=== PATIENT | female | born 1980 | race Caucasian/White ===

== ENCOUNTER 2019-02-09 06:26 | Day surgery (SDC) | payer OTHER ==
[2019-02-09 06:47] LABS: Specific Gravity 1.025 (1.005-1.030)
[2019-02-09] MEDS ORDERED: Ringers Lactate 1,000 ML IV ONE (06:56)
[2019-02-09] MEDS ORDERED: FENTANYL CITR 100 MCG/2 ML ONE (07:17)
[2019-02-09] MEDS ORDERED: PROPOFOL 200 MG/20 ML VIAL IV ONE (07:17)
[2019-02-09] MEDS ORDERED: LIDOCAINE 2% MPF 5 ML VIAL ONE (07:18)
[2019-02-09] MEDS ORDERED: DEXAMETHASONE 10 MG/ML VIAL ONE (07:18)
[2019-02-09] MEDS ORDERED: MIDAZOLAM HCL 2 MG/2 ML INJ ONE (07:18)
[2019-02-09] MEDS ORDERED: NA CHLORIDE 0.9% 1,000 ML ONE (07:20)
[2019-02-09] MEDS ORDERED: LIDOCAINE 1% W/EPI 1:100,000 MDV 50 ML VIAL ONE (07:20)
[2019-02-09] MEDS ORDERED: SILVER NITRATE 1 APPL TOP ONE (08:20)
[2019-02-09] MEDS ORDERED: KETOROLAC 30 MG/ML INJ ONE (08:31)
[2019-02-09] MEDS: MORPHINE 4 MG/ML SYR ONE ×4 (08:39→08:54)
[2019-02-09] MEDS ORDERED: ONDANSETRON HCL 40 MG/20 ML VIAL ONE (08:52)
--- NOTE | 2019-02-09 18:44 | OP ---
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 Postoperative Diagnoses: Menorrhagia, endometrial polyp. Procedures Performed: Hysteroscopy, polypectomy, and dilation and curettage with a Symphion device. Anesthesia: General with LMA. Specimens: Polyp and endometrial curettings. Complications: None. Drains: None. Condition: Stable. Findings: Uterine cavity, sounded with a SlimLine scope, 7 cm sounding length, 4.5 cm cervical lengt h. Uterine cavity length calculated at the level of the fundus, 3.5 cm. Both tubal ostia well visua lized. No indentation that could be visible seen during the hysteroscopy. After the polyp was remov ed, the entire cavity appeared to be single. Both tubal ostia were well visualized. Polyp and curet tings were done to an optimal extent and sent over for permanent pathology. Procedure In Detail: After informed consent was verified, the patient was taken back to the OR, plac ed in a supine fashion on the operating table, general anesthesia given. Placed in a dorsal lithotom y position. Pelvic exam, anteflexed uterus. Cervix, vagina, and vulva prepped with Betadine x3. An terior lip grasped with 2 Allis clamps. The Symphion device was primed, normal saline used for diste ntion, 0 degree scope. The cervical canal was difficult to be traversed without dilation, so the sco pe removed, dilation to 14-Sinhala. Then scope placed. Set pressure at 90 mmHg increased from 80 as the cavity distention was not optimal. Once the cavity was entered, there was a polyp and an endomet rium that was very thick, difficult for a good cavity distention at this point or cavity visualizatio n due to the presence of the tissue and the polyp, so the resection device was placed. The polyp and the curettings were performed with good visualization. Once this was done, the scope was changed to a SlimLine scope, set the pressure at 100 and visualized, and the cavity was single. No distortion. No other intracavitary lesions. The polyp removed completely and curettings done optimally. If th ere is an arcuate uterus, I could not diagnose by any indentation, but there was no septum and there was a single cavity with both tubal ostia visualized. So scope was removed. Curettings were sent fo r permanent pathology. Instrument, needle, and sponge counts done and were correct. The patient brianda erated the procedure well. Got 30 mg of Toradol prior to the recovery. She will follow up with me milly griffith 1 week. She will be a relatively poor candidate for a Mirena IUD, most likely because of only 3-1/ 2 cm of the mid distance for stem of the Mirena IUD. MARTY/LEVI Voice ID: [id number] Report ID: [id number]
== END 2019-02-09 09:41 | disposition home or self-care (01) ==
LOC: OR 06:26
PROVIDERS: ATTEND Obstetrics & Gynecology
PROC: 0UDB7ZX Extraction of Endometrium, Via Natural or Artificial Opening, Diagnostic (ICD-10-PCS; 2019-02-09)
PROC: 0UJD8ZZ Inspection of Uterus and Cervix, Via Natural or Artificial Opening Endoscopic (ICD-10-PCS; 2019-02-09)
PROC: 0UB97ZX Excision of Uterus, Via Natural or Artificial Opening, Diagnostic (ICD-10-PCS; principal; 2019-02-09 07:30)
DX: N84.0 Polyp of corpus uteri (principal); N92.0 Excessive and frequent menstruation with regular cycle; N93.0 Postcoital and contact bleeding; N94.3 Premenstrual tension syndrome; Q51.810 Arcuate uterus; F17.210 Nicotine dependence, cigarettes, uncomplicated
CPT/HCPCS: 81025; 88305; J1100; J2250; J2405; J2704; J3010; J7030

== ENCOUNTER 2019-03-11 08:24 | Day surgery (SDC) | payer OTHER ==
[~2019-03-11 08:24] MED LIST: CEFAZOLIN/SWI 2gm 2 GM/20 ML SYR IVP SCH; Ringers Lactate 1,000 ML IV SCH
[2019-03-11] MEDS ORDERED: CEFAZOLIN/SWI 2gm 2 GM/20 ML SYR ONE (09:01)
[2019-03-11] MEDS ORDERED: Ringers Lactate 1,000 ML IV ONE ×2 (09:01→12:21)
[2019-03-11] MEDS ORDERED: MIDAZOLAM HCL 2 MG/2 ML INJ ONE (10:22)
[2019-03-11] MEDS ORDERED: LIDOCAINE 2% MPF 5 ML VIAL ONE (10:22)
[2019-03-11] MEDS ORDERED: FENTANYL CITR 250 MCG/5 ML ONE (10:22)
[2019-03-11] MEDS ORDERED: dexAMETHasone 10 MG/ML VIAL ONE (10:22)
[2019-03-11] MEDS ORDERED: PROPOFOL 200 MG/20 ML VIAL IV ONE (10:22)
[2019-03-11] MEDS ORDERED: ROCURONIUM 50 MG/5 ML VIAL IV ONE (10:22)
[2019-03-11] MEDS ORDERED: KETOROLAC 30 MG/ML INJ ONE (11:51)
[2019-03-11] MEDS: HYDROMORPHONE HCL 1 MG/ML INJ ONE ×2 (12:24→12:30)
[2019-03-11] MEDS: HYDROMORPHONE HCL 2 MG/ML inj ONE ×3 (12:38→12:48)
[2019-03-11] MEDS ORDERED: FENTANYL CITR 100 MCG/2 ML ONE (13:17)
[2019-03-11] MEDS ORDERED: IBUPROFEN 400 MG TAB ONE (13:20)
[2019-03-11] MEDS ORDERED: HYDROCODONE/APAP 5/325 MG TAB ONE (14:43)
== END 2019-03-11 15:30 | disposition home or self-care (01) ==
LOC: OR 08:24
PROVIDERS: ATTEND Obstetrics & Gynecology
PROC: 0U5B8ZZ Destruction of Endometrium, Via Natural or Artificial Opening Endoscopic (ICD-10-PCS; 2019-03-11)
PROC: 0UDB7ZX Extraction of Endometrium, Via Natural or Artificial Opening, Diagnostic (ICD-10-PCS; 2019-03-11)
PROC: 0UL74CZ Occlusion of Bilateral Fallopian Tubes with Extraluminal Device, Percutaneous Endoscopic Approach (ICD-10-PCS; principal; 2019-03-11 10:30)
DX: N92.0 Excessive and frequent menstruation with regular cycle (principal); Z30.2 Encounter for sterilization; N84.0 Polyp of corpus uteri; N80.0 Endometriosis of uterus; Q51.810 Arcuate uterus; K66.0 Peritoneal adhesions (postprocedural) (postinfection); F90.9 Attention-deficit hyperactivity disorder, unspecified type; F17.210 Nicotine dependence, cigarettes, uncomplicated; Z80.41 Family history of malignant neoplasm of ovary; Z83.3 Family history of diabetes mellitus
CPT/HCPCS: 81025; 88305; J0690; J1100; J1170; J2250; J2704; J3010